=== PATIENT | male | born 1950 | race Caucasian/White ===

== ENCOUNTER 2024-03-12 15:17 | Emergency (ER) | payer MEDICARE, BC ==
[~2024-03-12] VITALS: Ht 180.3 cm; Wt 116.0 kg
[2024-03-12] MEDS ORDERED: Diph, Acellular Pertussis, Tet 0.5 ML/VIAL (Tdap) SDV IM ONE (19:40)
[2024-03-12] MEDS ORDERED: KEFLEX500 MG PO (19:56)
[2024-03-12 20:15] VITALS: BP 130/78
== END 2024-03-12 20:15 | disposition home or self-care (01) ==
LOC: ED 15:17
PROC: 0HQMXZZ Repair Right Foot Skin, External Approach (ICD-10-PCS; principal; 2024-03-12)
DX: S91.111A Laceration without foreign body of right great toe without damage to nail, initial encounter (principal); I10 Essential (primary) hypertension; W22.09XA Striking against other stationary object, initial encounter; Y92.028 Other place in mobile home as the place of occurrence of the external cause
CPT/HCPCS: 90715